=== PATIENT | female | born 1985 | race Caucasian/White ===

== ENCOUNTER 2018-03-19 13:33 | Emergency (ER) | payer SELFPAY ==
[~2018-03-19] VITALS: Ht 165.1 cm; Wt 131.1 kg
[2018-03-19 13:44] VITALS: Ht 165.1 cm; Wt 131.1 kg
[2018-03-19] MEDS ORDERED: ZPAK PO (17:03)
[2018-03-19] MEDS ORDERED: FLUTICASONE PRO16 GM NASAL (17:03)
[2018-03-19] MEDS ORDERED: TESSALON PERLE100 MG PO (17:03)
[2018-03-19 17:18] VITALS: BP 146/97
== END 2018-03-19 17:19 | disposition home or self-care (01) ==
LOC: D.ER 13:33
DX: J01.90 Acute sinusitis, unspecified (principal); R05 Cough; F17.200 Nicotine dependence, unspecified, uncomplicated